=== PATIENT | male | born 1950 | race Hispanic/Latino ===

== ENCOUNTER 2017-09-27 07:44 | Outpatient (CLI) | payer MEDICARE ==
--- NOTE | 2017-09-27 08:18 | XRay Report ---
XRAY LEFT KNEE FOUR VIEWS: 09/27/17 07:44:00 CLINICAL: Knee pain. FINDINGS: No fracture or dislocation. The medial and lateral joint spaces are normal. Minimal patellofemoral joint arthritis. A small quadriceps enthesophyte. No joint effusion. The soft tissues are normal. 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
== END 2017-09-27 07:45 | disposition home or self-care (01) ==
LOC: SPVIMAG 07:44
PROVIDERS: ATTEND Orthopaedic Surgery
DX: M17.12 Unilateral primary osteoarthritis, left knee (principal); M76.892 Other specified enthesopathies of left lower limb, excluding foot